=== PATIENT | female | born 1990 | race Caucasian/White ===

== ENCOUNTER 2021-11-05 18:33 | Emergency (ER) | payer BC, SELFPAY ==
[2021-11-05 18:45] VITALS: BP 166/116; PULSE 83; RESP 16; TEMP 36.7; O2SAT 100
--- NOTE | 2021-11-05 19:09 | ED.URI ---
HPI - URI/Sore Throat General Chief Complaint: Upper Respiratory Infection Stated Complaint: Sinus, Right Ear Irritation Time Seen by Provider: 11/05/21 19:13 History of Present Illness HPI Narrative: Char Irizarry is a 31-year-old female who comes to express care with sinus pressure and right ear popping that has not improved with this Sudafed or [id number] medication and has been going on for a number of days. she has a PMH of hypertension prediabetes and depression Related Data Home Medications Medication Instructions Recorded Confirmed L norgest/E estradiol-E estrad 1 tablet PO DAILY 11/05/21 11/05/21 0.15 mg-30 mcg (84)/10 mcg(7) tabs,3mos olmesartan 20 mg tablet 20 mg PO DAILY 11/05/21 11/05/21 Allergies Allergy/AdvReac Type Severity Reaction Status Date / Time No Known Allergies Allergy Unknown Verified 11/05/21 18:56 Review of Systems Review of Systems: CONSTITUTIONAL: Denies fever, chills, sweats. EYES: Denies visual changes, redness, discharge. ENT: Denies rhinorrhea, congestion, sore throat, right otalgia. Sinus pressure CARDIOVASCULAR: Denies chest pain, palpitations, edema. RESPIRATORY: Denies dyspnea, wheezing, has cough GASTROINTESTINAL: Denies abdominal pain, nausea, vomiting, diarrhea. GENITOURINARY: Denies dysuria, hematuria, abnormal discharge SKIN: Denies rash or itching. NEUROLOGIC: Denies numbness, or focal weakness. PSYCHIATRIC: Denies anxiety or depression. [facility] Past Medical History Medical History Depression Hypertension Prediabetes Social History Social History (Updated 11/05/21 @ 19:15 by Cassandra Conner CNP) Smoking status: Never smoker Alcohol intake: current Comments At time of signature, I agree with nursing past medical, surgical, social and family history. There is no relevant family history pertinent to the presenting complaint. Exam Narrative: GENERAL: This is a well-nourished, well-developed patient, in mild distress. HEAD: normocephalic, atraumatic. EYES: Sclera clear/white. Vision is grossly intact. EARS: External ears normal, auditory canals erythema on right and without drainage, TMs normal without perforation. Hearing grossly intact. NOSE: External nose normal with nasal discharge, nares without redness, no rhinorrhea. THROAT: Mucous membranes moist, posterior pharynx erythema NECK: Neck supple, non-tender CARDIOVASCULAR: Regular rate and rhythm without murmurs, gallops, or rubs. RESPIRATORY: Clear to auscultation. Breath sounds equal bilaterally. No wheezes, rales, or rhonchi. GASTROINTESTINAL: Not done SKIN: warm, intact with no suspicious lesions or rash, good texture and turgor. NEURO: awake, alert, and oriented to person, place and time. There were no obvious focal neurologic abnormalities. Steady gait EXTREMITIES: Normal range of motion. BACK: Nontender without deformity Course Course Emergency Course: She comes with right ear popping and sinus pressure this been going for a number of days she is also prediabetic and has hypertension is depressed Started on prednisone 40 mg x 5 days amoxicillin and eardrops Level of Care: Express Care Visit Vital Signs Vital signs: Vital Signs Temperature 98.1 F 11/05/21 18:45 Pulse Rate 83 11/05/21 18:45 Respiratory Rate 16 11/05/21 18:45 Blood Pressure 166/116 H 11/05/21 18:45 Pulse Oximetry 100 11/05/21 18:45 Oxygen Delivery Room Air 11/05/21 18:45 Temperature 98.1 F 11/05/21 18:45 Pulse Rate 83 11/05/21 18:45 Respiratory Rate 16 11/05/21 18:45 Blood Pressure 166/116 H 11/05/21 18:45 Pulse Oximetry 100 11/05/21 18:45 Oxygen Delivery Room Air 11/05/21 18:45 MDM - URI/Sore Throat Differential Diagnosis Differential diagnosis: Likely upper respiratory infection, otitis media, sinusitis, viral infection, bronchitis, pharyngitis and other Critical Care Time Critical Care Time C
== END 2021-11-05 19:27 | disposition home or self-care (01) ==
PROVIDERS: Emergency Provider Nurse Practitioner
DX: J01.80 Other acute sinusitis (principal); B96.89 Other specified bacterial agents as the cause of diseases classified elsewhere; H66.001 Acute suppurative otitis media without spontaneous rupture of ear drum, right ear; I10 Essential (primary) hypertension; E16.2 Hypoglycemia, unspecified; F32.A Depression, unspecified
CPT/HCPCS: 99213; G0463